=== PATIENT | female | born 2000 | race Caucasian/White ===

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

== ENCOUNTER 2020-09-02 04:01 | Inpatient (IN) | payer SELFPAY ==
[2020-09-02] MEDS ORDERED: Ondansetron 4 MG/2 ML SDV IVPUSH PRN (15:29)
[2020-09-02] MEDS ORDERED: Sodium Chloride 0.9% 10 ML Syringe FLUSH PRN (15:29)
[2020-09-02] MEDS ORDERED: Lidocaine 1% 50 ML MDV INJECT ONE (15:29)
[2020-09-02] MEDS ORDERED: Nalbuphine 10 MG/1 ML Vial IVPUSH PRN (15:29)
[2020-09-02] MEDS ORDERED: Oxytocin/Lactated Ringers 10 UNIT/1,000 ML BAG IV SCH ×2 (15:30)
[2020-09-02] MEDS: Lactated Ringers 1,000 ML IV SCH ×3 (15:59→18:43)
--- NOTE | 2020-09-02 16:07 | PCM.PREANE ---
Preanesthetic Assessment - Procedure Proposed Procedure: Labor epidural - Anesthesia/Transfusion/Family Hx Anesthesia History: No Prior Anesthesia Family History of Anesthesia Reaction: No Transfusion History: No Prior Transfusion(s) Intubation History: Unknown - Review of Systems General: No Symptoms Pulmonary: No Symptoms Cardiovascular: Edema (Bilateral ankles) Gastrointestinal: Abdominal Pain (Uterine contractions) Neurological: No Symptoms Other: Reports: Depression (No current anxiety or depression), Anxiety - Physical Assessment NPO Status Date: 09/02/20 NPO Status Time: 15:15 Vital Signs: BP 119/60 HR 94 16 98% 98.6 Height: 1.6 m Weight: 82.599 kg ASA Class: 2 Mental Status: Alert & Oriented x3 Airway Class: Mallampati = 2 Dentition: Reports: Normal Dentition, Caries Thyro-Mental Finger Breadths: 3 Mouth Opening Finger Breadths: 2 ROM/Head Extension: Full Lungs: Clear to Auscultation, Normal Respiratory Effort Cardiovascular: Regular Rate, Regular Rhythm, No Murmurs - Lab Values: Labs reviewed and okay to proceed - Allergies Allergies/Adverse Reactions: Allergies Allergy/AdvReac Type Severity Reaction Status Date / Time celery Allergy Numbness Verified 09/02/20 15:35 honey Allergy Swollen Verified 09/02/20 15:35 Tongue cats Allergy Sneezing Uncoded 09/02/20 15:35 - Blood Blood Available: No Product(s) Available: None - Anesthesia Plan Pre-Op Medication Ordered: None - Acknowledgements Anesthesia Type Planned: Epidural Pt an Appropriate Candidate for the Planned Anesthesia: Yes Alternatives and Risks of Anesthesia Discussed w Pt/Guardian: Yes Pt/Guardian Understands and Agrees with Anesthesia Plan: Yes PreAnesthesia Questionnaire HEENT History: Reports: Impaired Vision Other HEENT History: glasses Respiratory History: Reports: Asthma Other Respiratory History: uses inhaler PRN, has not used it in 2 years Gastrointestinal History: Reports: GERD 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 - SUBSTANCE USE Tobacco Use Status *Q: Current Every Day Tobacco User Tobacco Use Within Last Twelve Months: Vaping Second Hand Smoke Exposure: No Days Per Week of Alcohol Use: 0 Number of Drinks Per Day: 0 Total Drinks Per Week: 0 Recreational Drug Use History: No - HOME MEDS Home Medications: Home Meds Pnv No.95/Ferrous Fum/Folic AC [ Caplet] 1 tab PO DAILY 04/18/19 [History] Acetaminophen [Tylenol] 650 mg PO Q4H PRN tablet 09/24/19 [Rx] Benzocaine/Menthol [Dermoplast Pain Relief [place]] 50 gm TOP ASDIRECTED PRN c anister 09/24/19 [Rx] Docusate Sodium [Colace] 100 mg PO BID PRN cap 09/24/19 [Rx] Ibuprofen [Motrin] 600 mg PO Q4H PRN tablet 09/24/19 [Rx] wityeny Jerson [Tucks] 1 pad TOP ASDIRECTED PRN pad 09/24/19 [Rx] - CURRENT (IN HOUSE) MEDS Current Meds: Current Medications Oxytocin/Lactated Ringer's (Pitocin In Lr 10 Units/1,000 Ml) 10 unit in 1,000 mls @ 500 mls/hr IV .CONTINUOUS JOSELITO Oxytocin/Lactated Ringer's (Pitocin In Lr 10 Units/1,000 Ml) 10 unit in 1,000 mls @ 12 mls/hr IV TITRATE JOSELITO; Protocol Lactated Ringer's (Ringers, Lactated) 1,000 mls @ 100 mls/hr IV ASDIRECTED JOSELITO Last Admin: 09/02/20 15:59 Dose: 100 mls/hr Documented by: Nalbuphine HCl (Nalbuphine 10 Mg/1 Ml Vial) 10 mg IVPUSH Q2H PRN PRN Reason: Pain Ondansetron HCl (Ondansetron 4 Mg/2 Ml Sdv) 4 mg IVPUSH Q4H PRN PRN Reason: Nausea/Vomiting Sodium Chloride (Sodium Chloride 0.9% 10 Ml Syringe) 10 ml FLUSH ASDIRECTED PRN PRN Reason: Keep Vein Open Discontinued Medications Lidocaine HCl (Lidocaine 1% 50 Ml Mdv) 50 ml INJECT ONETIME ONE Stop: 09/02/20 15:30
[2020-09-02] MEDS ORDERED: Bupivacaine/fentaNYL/NS 100 ML Bag EPIDUR PRN (16:29)
[2020-09-02] MEDS ORDERED: ePHEDrine 50 MG/ML SDV IVPUSH PRN (16:29)
[2020-09-02] MEDS ORDERED: fentaNYL 100 MCG/2 ML SDV EPIDUR PRN (16:29)
[2020-09-02] MEDS ORDERED: diphenhydrAMINE 50 MG/ML SDV IVPUSH PRN (16:29)
--- NOTE | 2020-09-02 18:19 | PCM.LDHP ---
L&D History of Present Illness - General Date of Service: 09/02/20 Admit Problem/Dx: Patient Status Order with Admit Dx/Problem 09/02/20 15:29 Patient Status [ADT] Routine Admission Diagnosis/Problem Admission Diagnosis/Problem Normal labor - History of Present Illness Introduction:: 20 year old at 39w3. Here in labor and with SROM. PNC with Dr. Reese complicated by closely spaced pregnancies. Pain Score: 10 - Related Data Allergies/Adverse Reactions: Allergies Allergy/AdvReac Type Severity Reaction Status Date / Time celery Allergy Numbness Verified 09/02/20 15:35 honey Allergy Swollen Verified 09/02/20 15:35 Tongue cats Allergy Sneezing Uncoded 09/02/20 15:35 Home Medications: Home Meds Pnv No.95/Ferrous Fum/Folic AC [ Caplet] 1 tab PO DAILY 04/18/19 [History] Acetaminophen [Tylenol] 650 mg PO Q4H PRN tablet 09/24/19 [Rx] Benzocaine/Menthol [Dermoplast Pain Relief [place]] 50 gm TOP ASDIRECTED PRN canister 09/24/19 [Rx] Docusate Sodium [Colace] 100 mg PO BID PRN cap 09/24/19 [Rx] Ibuprofen [Motrin] 600 mg PO Q4H PRN tablet 09/24/19 [Rx] witch Jerson [Tucks] 1 pad TOP ASDIRECTED PRN pad 09/24/19 [Rx] Past Medical History HEENT History: Reports: Impaired Vision Other HEENT History: glasses Respiratory History: Reports: Asthma Other Respiratory History: uses inhaler PRN, has not used it in 2 years Gastrointestinal History: Reports: GERD 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 Social & Family History - Tobacco Use Tobacco Use Status *Q: Current Every Day Tobacco User Second Hand Smoke Exposure: No - Caffeine Use Caffeine Use: Reports: None - Alcohol Use Days Per Week of Alcohol Use: 0 Number of Drinks Per Day: 0 Total Drinks Per Week: 0 - Recreational Drug Use Recreational Drug Use: No H&P Review of Systems - Review of Systems: Review Of Systems: See Below General: Reports: No Symptoms HEENT: Reports: No Symptoms Pulmonary: Reports: No Symptoms Cardiovascular: Reports: No Symptoms Gastrointestinal: Reports: No Symptoms Genitourinary: Reports: No Symptoms Musculoskeletal: Reports: No Symptoms Skin: Reports: No Symptoms Psychiatric: Reports: No Symptoms Neurological: Reports: No Symptoms Hematologic/Lymphatic: Reports: No Symptoms Immunologic: Reports: No Symptoms L&D Exam - Exam Exam: See Below - Vital Signs Vital Signs: Last Vital Signs Temp 37.0 C 09/02/20 15:29 Pulse 94 09/02/20 15:29 Resp 16 09/02/20 15:29 BP 119/60 09/02/20 15:29 Pulse Ox 98 09/02/20 15:29 Weight: 82.599 kg - OB Specific Contraction Intensity: Moderate Movement: Active Heart Tones: Present Heart Rate (FHR) Variability: Moderate (6-25 bpm) Presentation: Vertex - Disla Score Disla Score Cervix Position: Midposition Disla Score Consistency: Soft Disla Score Effacement: 51-70% Disla Score Dilation: > 5 cm - Exam General: Alert, Oriented HEENT: PERRLA, Conjunctiva Clear, EACs Clear, EOMI, Hearing Intact, Mucosa Moist & [place], Nares Patent, Normal Nasal Septum, Posterior Pharynx Clear, TMs Clear Neck: Supple, Trachea Midline Lungs: Clear to Auscultation GI/Abdominal Exam: Normal Bowel Sounds, Soft, Non-Tender, No Organomegaly, No Distention, No Abnormal Bruit, No Mass, Pelvis Stable Back Exam: Normal Inspection, Full Range of Motion Extremities: Normal Inspection, Normal Range of Motion, Non-Tender, No Pedal Edema, Normal Capillary Refill Skin: Warm, Dry, Intact Neurological: Cranial Nerves Intact, Reflexes Equal Bilateral Psychiatric: Alert, Normal Affect, Normal Mood - Patient Data Lab Results Last 24 hrs: Laboratory Results - last 24 hr 09/02/20 09/02/20 Range/Units 15:44 15:47 WBC 10.56 H (3.98-10.04) K/mm3 RBC 3.94 L (3.98-5.22) M/mm3 Hgb 9.9 L D (11.2-15.7) gm/dl Hct 31.3 L (34.1-44.9) % MCV 79.4 D (79.4-94.8) fl MCH 25.1 L (25.6-32.2) pg MCHC 31.6 L (32.2-35.5) g/dl RDW Std Deviation 40.1 (36.4-46.3) fL Plt Count 245 (182-369) K/mm3 MPV 10.1 (9.4-12.3) fl Neut % (Auto) 73.3 H (34.0-71.1) % Lymph % (Auto) 19.4 (19.3-51.7) % [place] % (Auto) 6.7 (4.7-12.5) % Eos % (Auto) 0.3 L (0.7-5.8) Baso % (Auto) 0.1 (0.1-1.2) % Neut # (Auto) 7.74 H (1.56-6.13) K/mm3 Lymph # (Auto) 2.05 (1.18-3.74) K/mm3 [place] # (Auto) 0.71 H (0.24-0.36) K/mm3 Eos # (Auto) 0.03 L (0.04-0.36) K/mm3 Baso # (Auto) 0.01 (0.01-0.08) K/mm3 SARS-CoV-2 RNA (HARRY) Negative (NEGATIVE) Result Diagrams: 09/02/20 15:47 Problem List Initiated/Reviewed/Updated: Yes Orders Last 24hrs: Active Orders 24 hr Category Date Time Status Patient Status [ADT] Routine ADT 09/02/20 15:29 Active Activity as Tolerated [RC] PFP Care 09/02/20 15:29 Active Communication Order [RC] ASDIRECTED Care 09/02/20 15:29 Active Heart Tones [RC] ASDIRECTED Care 09/02/20 15:30 Active Non Stress Test [RC] PER UNIT ROUTINE Care 09/02/20 15:29 Active Notify Provider [RC] ASDIRECTED Care 09/02/20 16:29 Active Notify Provider [RC] PFP Care 09/02/20 15:29 Active Notify Provider [RC] PRN Care 09/02/20 15:29 Active Peripheral IV Care [RC] . DIRECTED Care 09/02/20 15:30 Active Vital Signs [RC] PER UNIT ROUTINE Care 09/02/20 15:29 Active Regular Diet [DIET] Diet 09/02/20 Dinner Active HEP C VIRUS AB [REF] Stat Lab 09/02/20 15:47 Received RAPID PLASMA REAGIN,RPR [CHEM] Routine Lab 09/02/20 15:47 Received Bupivacaine/fentaNYL/NS [fentaNYL/Bupivacaine/NS 2 MCG- Med 09/02/20 16:29 Active 0.125% 100 ML] 100 ml EPIDUR ASDIRECTED PRN Lactated Ringers [Ringers, Lactated] 1,000 ml Med 09/02/20 15:30 Active IV ASDIRECTED Nalbuphine [Nubain] Med 09/02/20 15:29 Active 10 mg IVPUSH Q2H PRN Ondansetron [Zofran] Med 09/02/20 15:29 Active 4 mg IVPUSH Q4H PRN Oxytocin/Lactated Ringers [Pitocin in LR 10 Units/1,000 Med 09/02/20 15:30 Active ML] 10 unit in 1,000 ml IV .CONTINUOUS Oxytocin/Lactated Ringers [Pitocin in LR 10 Units/1,000 Med 09/02/20 15:30 Active ML] 10 unit in 1,000 ml IV TITRATE Sodium Chloride 0.9% [Saline Flush] Med 09/02/20 15:29 Active 10 ml FLUSH ASDIRECTED PRN diphenhydrAMINE [Benadryl] Med 09/02/20 16:29 Active 25 mg IVPUSH Q6H PRN ePHEDrine [ePHEDrine sulfate] Med 09/02/20 16:29 Active 5 mg IVPUSH ASDIRECTED PRN fentaNYL [Sublimaze] Med 09/02/20 16:29 Active 100 mcg EPIDUR Q3H PRN Electronic Heart Tones Ext w TOCO [WOMSER] Oth 09/02/20 15:29 Ordered Routine Electronic Heart Tones Internal [WOMSER] Per Unit Oth 09/02/20 15:29 Ordered Routine Peripheral IV Insertion Adult [OM.PC] Routine Oth 09/02/20 15:29 Ordered Resuscitation Status Routine Resus Stat 09/02/20 15:29 Ordered Medication Orders Diphenhydramine HCl (Diphenhydramine 50 Mg/Ml Sdv) 25 mg IVPUSH Q6H PRN PRN Reason: pruritis Ephedrine Sulfate (Ephedrine 50 Mg/Ml Sdv) 5 mg IVPUSH ASDIRECTED PRN PRN Reason: Hypotension Fentanyl (Fentanyl 100 Mcg/2 Ml Sdv) 100 mcg EPIDUR Q3H PRN PRN Reason: Pain Last Admin: 09/02/20 17:42 Dose: 100 mcg Documented by: JESSICA Fentanyl/Bupivacaine HCl (Bupivacaine/Fentanyl/Ns 100 Ml Bag) 100 ml EPIDUR ASDIRECTED PRN PRN Reason: Pain Last Admin: 09/02/20 17:42 Dose: 100 ml Documented by: JESSICA Oxytocin/Lactated Ringer's (Pitocin In Lr 10 Units/1,000 Ml) 10 unit in 1,000 mls @ 500 mls/hr IV .CONTINUOUS JOSELITO Oxytocin/Lactated Ringer's (Pitocin In Lr 10 Units/1,000 Ml) 10 unit in 1,000 mls @ 12 mls/hr IV TITRATE JOSELITO; Protocol Lactated Ringer's (Ringers, Lactated) 1,000 mls @ 100 mls/hr IV ASDIRECTED JOSELITO Last Admin: 09/02/20 17:41 Dose: 100 mls/hr Documented by: Infusion: 09/02/20 17:41 Dose: 100 mls/hr Documented by: Admin: 09/02/20 15:59 Dose: 100 mls/hr Documented by: BLAKE Nalbuphine HCl (Nalbuphine 10 Mg/1 Ml Vial) 10 mg IVPUSH Q2H PRN PRN Reason: Pain Ondansetron HCl (Ondansetron 4 Mg/2 Ml Sdv) 4 mg IVPUSH Q4H PRN PRN Reason: Nausea/Vomiting Sodium Chloride (Sodium Chloride 0.9% 10 Ml Syringe) 10 ml FLUSH ASDIRECTED PRN PRN Reason: Keep Vein Open
[2020-09-02] MEDS ORDERED: Acetaminophen 325 MG Tab PO PRN (23:51)
[2020-09-03] MEDS ORDERED: Gentamicin 40 MG/ML 2 ML Vial IV SCH (01:45)
[2020-09-03] MEDS ORDERED: Clindamycin Phosphate in D5W 900 MG in Premix Bag 1 BAG IV SCH ×2 (02:00)
[2020-09-03] MEDS: Lactated Ringers 1,000 ML IV SCH (02:37)
--- NOTE | 2020-09-03 02:57 | PCM.PNLD ---
Labor Progress Note - VS & Meds Vital Signs: Last Vital Signs Temp 37.0 C 09/02/20 15:29 Pulse 94 09/02/20 15:29 Resp 16 09/02/20 15:29 BP 119/60 09/02/20 15:29 Pulse Ox 98 09/02/20 15:29 Active Medications: Current Medications Acetaminophen (Acetaminophen 325 Mg Tab) 650 mg PO Q4H PRN PRN Reason: Pain Last Admin: 09/03/20 00:05 Dose: 650 mg Documented by: Diphenhydramine HCl (Diphenhydramine 50 Mg/Ml Sdv) 25 mg IVPUSH Q6H PRN PRN Reason: pruritis Ephedrine Sulfate (Ephedrine 50 Mg/Ml Sdv) 5 mg IVPUSH ASDIRECTED PRN PRN Reason: Hypotension Fentanyl (Fentanyl 100 Mcg/2 Ml Sdv) 100 mcg EPIDUR Q3H PRN PRN Reason: Pain Last Admin: 09/02/20 17:42 Dose: 100 mcg Documented by: Fentanyl/Bupivacaine HCl (Bupivacaine/Fentanyl/Ns 100 Ml Bag) 100 ml EPIDUR ASDIRECTED PRN PRN Reason: Pain Last Admin: 09/02/20 17:42 Dose: 100 ml Documented by: Oxytocin/Lactated Ringer's (Pitocin In Lr 10 Units/1,000 Ml) 10 unit in 1,000 mls @ 500 mls/hr IV .CONTINUOUS JOSELITO Oxytocin/Lactated Ringer's (Pitocin In Lr 10 Units/1,000 Ml) 10 unit in 1,000 mls @ 12 mls/hr IV TITRATE JOSELITO; Protocol Lactated Ringer's (Ringers, Lactated) 1,000 mls @ 100 mls/hr IV ASDIRECTED JOSELITO Last Admin: 09/03/20 02:37 Dose: 100 mls/hr Documented by: Clindamycin Phosphate 900 mg/ (Premix) 50 mls @ 100 mls/hr IV Q6H JOSELITO Last Admin: 09/03/20 01:40 Dose: 100 mls/hr Documented by: Nalbuphine HCl (Nalbuphine 10 Mg/1 Ml Vial) 10 mg IVPUSH Q2H PRN PRN Reason: Pain Ondansetron HCl (Ondansetron 4 Mg/2 Ml Sdv) 4 mg IVPUSH Q4H PRN PRN Reason: Nausea/Vomiting Sodium Chloride (Sodium Chloride 0.9% 10 Ml Syringe) 10 ml FLUSH ASDIRECTED PRN PRN Reason: Keep Vein Open Discontinued Medications Gentamicin Sulfate (Gentamicin 40 Mg/Ml 2 Ml Vial) 0 mg IV .Pharmacy to Dose JOSELITO Gentamicin Sulfate 120 mg/ (Sodium Chloride) 103 mls @ 206 mls/hr IV ONETIME ONE Stop: 09/03/20 02:14 Last Admin: 09/03/20 02:04 Dose: 206 mls/hr Documented by: Lidocaine HCl (Lidocaine 1% 50 Ml Mdv) 50 ml INJECT ONETIME ONE Stop: 09/02/20 15:30 - Uterine Contractions Contraction Intensity: Moderate Uterine Resting Tone: Soft - Monitoring Heart Rate (FHR) Variability: Moderate (6-25 bpm) Decelerations: None Strip Review: Category I - Vaginal Exam Dilation (cm): 9.5 Effacement (Percent): 100 Station: -2 - Labor Progress (Free Text) Labor Progress: Called with report patient complete. On exam head high, ultrasound preformed to confirm head. Small thin anterior lip. Will start pushing once that resolves.
--- NOTE | 2020-09-03 03:10 | PCM.SN.2 ---
- Free Text/Narrative Note: Increasing tachycardia and now maternal fever over last 30 minutes of pushing. Antibiotics initiated. Discussed possibility of section however pushing very well now. Preparations made for but will push now and if no delivery imminent will proceed.
[2020-09-03] MEDS ORDERED: ceFAZolin 2 GM in Premix Bag 1 BAG IV ONE (03:22)
[2020-09-03] MEDS ORDERED: Metoclopramide 10 MG/2 ML SDV IVPUSH ONE (03:22)
[2020-09-03] MEDS ORDERED: Sodium Chloride 0.9% 10 ML Syringe FLUSH PRN (03:22)
[2020-09-03] MEDS ORDERED: Citric Acid/Sodium Citrate Solution 30 ML Cup PO ONE (03:22)
[2020-09-03] MEDS ORDERED: Sodium Bicarbonate 8.4% 50 MEQ/50 ML SDV ONE (03:25)
[2020-09-03] MEDS ORDERED: ceFAZolin 1 GM Vial ONE (03:25)
[2020-09-03] MEDS ORDERED: Lidocaine 2% with EPINEPHrine 1:200,000 20 ML SDV ONE (03:25)
[2020-09-03] MEDS ORDERED: Ketorolac 30 MG/ML SDV ONE (03:26)
[2020-09-03] MEDS ORDERED: fentaNYL 100 MCG/2 ML SDV ONE (03:26)
[2020-09-03] MEDS ORDERED: Oxytocin 10 Units/1 ML SDV ONE (03:26)
[2020-09-03] MEDS ORDERED: Ondansetron 4 MG/2 ML SDV ONE (03:26)
[2020-09-03] MEDS ORDERED: Azithromycin 500 MG in Sodium Chloride 0.9% 250 ML IV ONE (03:26)
[2020-09-03] MEDS ORDERED: Lactated Ringers 1,000 ML IV SCH (03:30)
[2020-09-03] MEDS ORDERED: Bupivacaine 0.5% 30 ML SDV ONE (03:33)
[2020-09-03] MEDS ORDERED: Morphine PF 10 MG/10 ML SDV ONE (04:23)
[2020-09-03] MEDS ORDERED: fentaNYL 100 MCG/2 ML SDV IVPUSH PRN (04:48)
[2020-09-03] MEDS ORDERED: diphenhydrAMINE 50 MG/ML SDV IVPUSH PRN (04:48)
[2020-09-03] MEDS ORDERED: Meperidine 50 MG/ML Vial IVPUSH PRN (04:48)
[2020-09-03] MEDS ORDERED: Ondansetron 4 MG/2 ML SDV IVPUSH PRN (04:48)
--- NOTE | 2020-09-03 04:49 | PCM.POSTAN ---
POST ANESTHESIA ASSESSMENT - MENTAL STATUS Mental Status: Alert, Oriented - VITAL SIGNS Vital Signs: Last Vital Signs Temp 98.6 F 09/02/20 15:29 Pulse 94 09/02/20 15:29 Resp 16 09/02/20 15:29 BP 119/60 09/02/20 15:29 Pulse Ox 98 09/02/20 15:29 PACU Vitals: 114/66 HR 77 RR 20 98.7 99 RA - RESPIRATORY Respiratory Status: Respiratory Rate WNL, Airway Patent, O2 Saturation Stable - CARDIOVASCULAR CV Status: Pulse Rate WNL, Blood Pressure Stable - GASTROINTESTINAL GI Status: No Symptoms - PAIN Pain Score: 0 - POST OP HYDRATION Hydration Status: Adequate & Stable
[2020-09-03] MEDS ORDERED: Lactated Ringers 1,000 ML ONE (05:01)
--- NOTE | 2020-09-03 05:37 | PCM.OPNOTE ---
- General Post-Op/Procedure Note Date of Surgery/Procedure: 09/03/20 Operative Procedure(s): Primary section Findings: Viable male weight 7 pounds 14 ounces Apgars 7/9 at 0401 Primary Surgeon: Shanelle Medina Anesthesia Provider: Nicolasa Poe Skin Fitter: Christal Poe Fluid Replacement, Intraop: 1,000 Output, Urine Amount: 50 EBL in mLs: 1,000 Complications: None Condition: Good Free Text/Narrative:: Intake & Output 09/02/20 09/02/20 09/03/20 14:59 22:59 06:59 Output Total 100 Balance -100 The patient was taken to the operating room where epidural anesthesia was dosed to surgical levels without difficulty. The patient was prepped and draped in the usual sterile fashion in the dorsal supine position with a leftward tilt. A Pfannenstiel skin incision was made with the scalpel and carried through to the underlying layer of fascia. The fascia was incised in the midline and extended laterally using Hooper scissors. Teodora clamps were used to elevate the superior aspect of the fascial incision, which was elevated, and the underlying rectus muscles were dissected off bluntly and using Hooper scissors. Attention was then turned to the inferior aspect of the fascial incision, which in similar fashion was grasped with Teodora clamps, elevated, and the underlying rectus muscles were dissected off bluntly and using the hooper. The rectus muscles were dissected in the midline. The peritoneum was entered bluntly; this incision was extended superiorly and inferiorly with good visualization of the bladder. The bladder blade was inserted. The vesicouterine peritoneum was identified and entered sharply using Metzenbaum scissors. This incision was extended laterally and the bladder flap was created digitally. The bladder blade was reinserted. The lower uterine segment was incised in a transverse fashion using the scalpel and with digital traction. Clear fluid was noted. The infant was subsequently delivered by flexing the head to the incision. Body and shoulders followed without difficulty. The cord was clamped and cut. The infant was subsequently handed to the awaiting waste machine operator whose presence had been requested.. The placenta was delivered spontaneously intact with a three-vessel cord noted. The uterus was exteriorized and cleared of all clots and debris. The uterine incision was repaired in 2 layers using 0 monocryl. Hemostasis was visualized. Hemostasis was visualized bilaterally. The uterus was returned to the abdomen. The uterine incision was reexamined and it was noted to be hemostatic. The pelvis was copiously irrigated. The fascia was closed with 1 PDS suture, and the skin was closed with 3-0 monocryl. Sponge, lap, and instrument counts were correct x2. The patient was stable at the completion of the procedure and was subsequently transferred to the recovery room in stable condition.
[2020-09-03] MEDS ORDERED: Acetaminophen 325 MG Tab PO PRN (06:26)
[2020-09-03] MEDS ORDERED: ePHEDrine 50 MG/ML SDV IVPUSH PRN (06:26)
[2020-09-03] MEDS ORDERED: Dextrose 5%-Lactated Ringers 1,000 ML IV SCH (06:26)
[2020-09-03] MEDS ORDERED: Clindamycin Phosphate in D5W 900 MG in Premix Bag 1 BAG IV ONE ×2 (06:26)
[2020-09-03] MEDS ORDERED: Naloxone 0.4 MG/ML SDV IVPUSH PRN (06:26)
[2020-09-03] MEDS ORDERED: Bupivacaine 0.25% 10 ML SDV ONE (07:00)
--- NOTE | 2020-09-03 10:00 | PCM48HPAN ---
Post Anesthesia Note - EVALUATION WITHIN 48HRS OF ANESTHETIC Vital Signs in Normal Range: Yes Patient Participated in Evaluation: Yes Respiratory Function Stable: Yes Airway Patent: Yes Cardiovascular Function Stable: Yes Hydration Status Stable: Yes Pain Control Satisfactory: Yes Nausea and Vomiting Control Satisfactory: Yes Mental Status Recovered: Yes Vital Signs: Last Vital Signs Temp 36.9 C 09/03/20 05:37 Pulse 83 09/03/20 08:47 Resp 16 09/03/20 05:27 BP 104/56 L 09/03/20 08:47 Pulse Ox 98 09/03/20 08:47
[2020-09-03] MEDS: diphenhydrAMINE 50 MG/ML SDV IVPUSH PRN (10:06)
[2020-09-03] MEDS: Ketorolac 30 MG/ML SDV IVPUSH SCH ×3 (10:09→22:17)
[2020-09-04] MEDS: diphenhydrAMINE 50 MG/ML SDV IVPUSH PRN (01:16)
[2020-09-04] MEDS: Ibuprofen 600 MG Tab PO PRN ×3 (06:30→18:40)
--- NOTE | 2020-09-04 08:09 | PCM.SN.2 ---
- Free Text/Narrative Note: note: Patient is doing well in the period. Minimal lochia, voiding well, ambulated without problems. Nursing without concerns. Patient is afebrile, vital signs are stable Abdomen is flat, soft, uterus is below the umbilicus and is firm and nontender. Incision appears to be healing well. Dressing is removed. Evidence of hematoma, seroma or infection. Legs are nontender. Hemoglobin is 7.9. White count is 17,000. Patient has no signs or symptoms of infection. Assessment: recovery going well. No signs or symptoms of infection. Patient ambulating well and tolerating her low blood count. Plan: Routine care. Patient be discharged home within the next 24-48 hours. Initiate iron 2 times a day in addition to her vitamins. Will monitor for signs of infection.
[2020-09-04] MEDS: Ferrous Sulfate 324 MG Tab.EC PO SCH ×2 (11:32→16:06)
[2020-09-04] MEDS: Docusate Sodium 100 MG Cap PO PRN ×2 (11:32→20:55)
[2020-09-04] MEDS: Acetaminophen/oxyCODONE 325-5 MG Tab PO PRN ×2 (16:07→20:55)
[2020-09-05] MEDS: Acetaminophen/oxyCODONE 325-5 MG Tab PO PRN ×2 (03:12→10:06)
--- NOTE | 2020-09-05 09:45 | PCM.DCSUM1 ---
Discharge Summary - Hospital Course Brief History: Admitted in labor. Pushed 3+ hours with minimal descent of head and eventual chorioamnionitis and tachycardia with decelerations. Proceeded with . Uncomplicated postop course. Diagnosis: Stroke: No - Discharge Data Discharge Date: 09/05/20 Discharge Disposition: Home, Self-Care 01 Condition: Good - Referral to Home Health Primary Care Physician: PCP None - Patient Summary/Data Operative Procedure(s) Performed: Primary section Hospital Course: Viable male weight 7 pounds 14 ounces Apgars 7/9 at 0401 - Patient Instructions Diet: Usual Diet as Tolerated Activity: No Strenuous Activities Driving: Do Not Drive Notify Provider of: Fever, Increased Pain, Swelling and Redness, Drainage, Nausea and/or Vomiting - Discharge Plan Home Medications: Home Meds Pnv No.95/Ferrous Fum/Folic AC [ Caplet] 1 tab PO DAILY 04/18/19 [History] Acetaminophen [Tylenol] 650 mg PO Q4H PRN tablet 09/24/19 [Rx] Benzocaine/Menthol [Dermoplast Pain Relief [place]] 50 gm TOP ASDIRECTED PRN canister 09/24/19 [Rx] Docusate Sodium [Colace] 100 mg PO BID PRN cap 09/24/19 [Rx] Ibuprofen [Motrin] 600 mg PO Q4H PRN tablet 09/24/19 [Rx] witch Jerson [Tucks] 1 pad TOP ASDIRECTED PRN pad 09/24/19 [Rx] Patient Handouts: Electronic Cigarette Information, Steps to Quit Smoking Referrals: Eryn Reese MD [Physician] - (2 weeks) - Discharge Summary/Plan Comment DC Time >30 min.: No - General Info Date of Service: 09/05/20 Functional Status: Reports: Pain Controlled - Review of Systems General: Reports: No Symptoms HEENT: Reports: No Symptoms Pulmonary: Reports: No Symptoms Cardiovascular: Reports: No Symptoms Gastrointestinal: Reports: No Symptoms Genitourinary: Reports: No Symptoms Musculoskeletal: Reports: No Symptoms Skin: Reports: No Symptoms Neurological: Reports: No Symptoms Psychiatric: Reports: No Symptoms - Patient Data Vitals - Most Recent: Last Vital Signs Temp 37.1 C 09/04/20 20:51 Pulse 85 09/04/20 20:51 Resp 16 09/04/20 20:51 BP 124/84 09/04/20 20:51 Pulse Ox 100 09/04/20 20:51 Weight - Most Recent: 82.599 kg Med Orders - Current: Current Medications Acetaminophen (Acetaminophen 325 Mg Tab) 650 mg PO Q4H PRN PRN Reason: mild pain or fever Diphenhydramine HCl (Diphenhydramine 50 Mg/Ml Sdv) 25 mg IVPUSH Q6H PRN PRN Reason: Itching or Nausea Last Admin: 09/04/20 01:16 Dose: 25 mg Documented by: Docusate Sodium (Docusate Sodium 100 Mg Cap) 100 mg PO Q12H PRN PRN Reason: Constipation Last Admin: 09/04/20 20:55 Dose: 100 mg Documented by: Ephedrine Sulfate (Ephedrine 50 Mg/Ml Sdv) 5 mg IVPUSH SEECOMMENT PRN PRN Reason: Other Ferrous Sulfate (Ferrous Sulfate 324 Mg Tab.Ec) 324 mg PO TIDMEALS JOSELITO Last Admin: 09/04/20 16:06 Dose: 324 mg Documented by: Ibuprofen (Ibuprofen 600 Mg Tab) 600 mg PO Q6H PRN PRN Reason: mild pain or fever Last Admin: 09/04/20 18:40 Dose: 600 mg Documented by: Naloxone HCl (Naloxone 0.4 Mg/Ml Sdv) 0.1 mg IVPUSH SEECOMMENT PRN PRN Reason: Respiratory Depression Oxycodone/Acetaminophen (Acetaminophen/Oxycodone 325-5 Mg Tab) 1 tab PO Q4H PRN PRN Reason: Pain (moderate 4-6) Last Admin: 09/04/20 20:55 Dose: 1 tab Documented by: Oxycodone/Acetaminophen (Acetaminophen/Oxycodone 325-5 Mg Tab) 2 tab PO Q4H PRN PRN Reason: Pain (severe 7-10) Last Admin: 09/05/20 03:12 Dose: 2 tab Documented by: Discontinued Medications Acetaminophen (Acetaminophen 325 Mg Tab) 650 mg PO Q4H PRN PRN Reason: Pain Last Admin: 09/03/20 00:05 Dose: 650 mg Documented by: Bupivacaine HCl (Bupivacaine 0.5% 30 Ml Sdv) Confirm Administered Dose 30 ml .ROUTE .STK-MED ONE Stop: 09/03/20 03:34 Last Admin: 09/03/20 03:59 Dose: 10 ml Documented by: Bupivacaine HCl (Bupivacaine 0.25% 10 Ml Sdv) 10 ml .ROUTE .STK-MED ONE Stop: 09/03/20 07:01 Cefazolin Sodium (Cefazolin 1 Gm Vial) Confirm Administered Dose 2 gm .ROUTE .STK-MED ONE Stop: 09/03/20 03:26 Citric Acid/Sodium Citrate (Citric Acid/Sodium Citrate Solution 30 Ml Cup) 30 ml PO ONETIME ONE Stop: 09/03/20 03:23 Last Admin: 09/03/20 03:25 Dose: 30 ml Documented by: Diphenhydramine HCl (Diphenhydramine 50 Mg/Ml Sdv) 25 mg IVPUSH Q6H PRN PRN Reason: pruritis Diphenhydramine HCl (Diphenhydramine 50 Mg/Ml Sdv) 25 mg IVPUSH Q6H PRN PRN Reason: Pruritis Ephedrine Sulfate (Ephedrine 50 Mg/Ml Sdv) 5 mg IVPUSH ASDIRECTED PRN PRN Reason: Hypotension Fentanyl (Fentanyl 100 Mcg/2 Ml Sdv) 100 mcg EPIDUR Q3H PRN PRN Reason: Pain Last Admin: 09/02/20 17:42 Dose: 100 mcg Documented by: Fentanyl (Fentanyl 100 Mcg/2 Ml Sdv) Confirm Administered Dose 100 mcg .ROUTE .[facility]-MED ONE Stop: 09/03/20 03:27 Fentanyl (Fentanyl 100 Mcg/2 Ml Sdv) 50 mcg IVPUSH Q5M PRN PRN Reason: Pain Fentanyl/Bupivacaine HCl (Bupivacaine/Fentanyl/Ns 100 Ml Bag) 100 ml EPIDUR ASDIRECTED PRN PRN Reason: Pain Last Admin: 09/02/20 17:42 Dose: 100 ml Documented by: Gentamicin Sulfate (Gentamicin 40 Mg/Ml 2 Ml Vial) 0 mg IV .Pharmacy to Dose JOSELITO Oxytocin/Lactated Ringer's (Pitocin In Lr 10 Units/1,000 Ml) 10 unit in 1,000 mls @ 500 mls/hr IV .CONTINUOUS JOSELITO Oxytocin/Lactated Ringer's (Pitocin In Lr 10 Units/1,000 Ml) 10 unit in 1,000 mls @ 12 mls/hr IV TITRATE JOSELITO; Protocol Lactated Ringer's (Ringers, Lactated) 1,000 mls @ 100 mls/hr IV ASDIRECTED JOSELITO Last Admin: 09/03/20 02:37 Dose: 100 mls/hr Documented by: Clindamycin Phosphate 900 mg/ (Premix) 50 mls @ 100 mls/hr IV Q6H [facility] Last Admin: 09/03/20 01:40 Dose: 100 mls/hr Documented by: Gentamicin Sulfate 120 mg/ (Sodium Chloride) 103 mls @ 206 mls/hr IV ONETIME ONE Stop: 09/03/20 02:14 Last Admin: 09/03/20 02:04 Dose: 206 mls/hr Documented by: Lactated Ringer's (Ringers, Lactated) 1,000 mls @ 125 mls/hr IV ASDIRECTED [facility] Cefazolin Sodium/Dextrose 2 gm (/ Premix) 50 mls @ 100 mls/hr IV ONETIME ONE Stop: 09/03/20 03:51 Last Admin: 09/03/20 21:24 Dose: Not Given Documented by: Azithromycin 500 mg/ Sodium (Chloride) 250 mls @ 250 mls/hr IV ONETIME ONE Stop: 09/03/20 04:25 Last Admin: 09/04/20 08:21 Dose: Not Given Documented by: Lactated Ringer's (Ringers, Lactated) Confirm Administered Dose 1,000 mls @ as directed .ROUTE .STK-MED ONE Stop: 09/03/20 05:02 Dextrose/Lactated Ringer's (Dextrose 5%-Lactated Ringers) 1,000 mls @ 125 mls/hr IV ASDIRECTED [facility] Stop: 09/03/20 14:25 Last Admin: 09/03/20 06:52 Dose: 125 mls/hr Documented by: Ketorolac Tromethamine (Ketorolac 30 Mg/Ml Sdv) Confirm Administered Dose 30 mg .ROUTE .STK-MED ONE Stop: 09/03/20 03:27 Ketorolac Tromethamine (Ketorolac 30 Mg/Ml Sdv) 30 mg IVPUSH Q6H [facility] Stop: 09/03/20 22:01 Last Admin: 09/03/20 22:17 Dose: 30 mg Documented by: Lidocaine HCl (Lidocaine 1% 50 Ml Mdv) 50 ml INJECT ONETIME ONE Stop: 09/02/20 15:30 Last Admin: 09/03/20 08:50 Dose: Not Given Documented by: Lidocaine/Epinephrine (Lidocaine 2% With Epinephrine 1:200,000 20 Ml Sdv) Confirm Administered Dose 20 ml .ROUTE .STK-MED ONE Stop: 09/03/20 03:26 Meperidine HCl (Meperidine 50 Mg/Ml Vial) 25 mg IVPUSH ONETIME PRN PRN Reason: Shivering Metoclopramide HCl (Metoclopramide 10 Mg/2 Ml Sdv) 10 mg IVPUSH ONETIME ONE Stop: 09/03/20 03:23 Last Admin: 09/03/20 03:25 Dose: 10 mg Documented by: Morphine Sulfate (Morphine Pf 10 Mg/10 Ml Sdv) Confirm Administered Dose 10 mg .ROUTE .STK-MED ONE Stop: 09/03/20 04:24 Nalbuphine HCl (Nalbuphine 10 Mg/1 Ml Vial) 10 mg IVPUSH Q2H PRN PRN Reason: Pain Ondansetron HCl (Ondansetron 4 Mg/2 Ml Sdv) 4 mg IVPUSH Q4H PRN PRN Reason: Nausea/Vomiting Ondansetron HCl (Ondansetron 4 Mg/2 Ml Sdv) Confirm Administered Dose 4 mg .ROUTE .STK-MED ONE Stop: 09/03/20 03:27 Ondansetron HCl (Ondansetron 4 Mg/2 Ml Sdv) 4 mg IVPUSH ONETIME PRN PRN Reason: Nausea/Vomiting Oxytocin (Oxytocin 10 Units/1 Ml Sdv) Confirm Administered Dose 10 unit .ROUTE .STK-MED ONE Stop: 09/03/20 03:27 Sodium Bicarbonate (Sodium Bicarbonate 8.4% 50 Meq/50 Ml Sdv) Confirm Administered Dose 50 meq .ROUTE .STK-MED ONE Stop: 09/03/20 03:26 Sodium Chloride (Sodium Chloride 0.9% 10 Ml Syringe) 10 ml FLUSH ASDIRECTED PRN PRN Reason: Keep Vein Open Sodium Chloride (Sodium Chloride 0.9% 10 Ml Syringe) 10 ml FLUSH ASDIRECTED PRN PRN Reason: Keep Vein Open - Exam General: Reports: Alert, Oriented HEENT: Reports: Pupils Equal, Pupils Reactive, EOMI, Mucous Membr. Moist/[place] Neck: Reports: Supple Lungs: Reports: Clear to Auscultation, Normal Respiratory Effort Cardiovascular: Reports: Regular Rate, Regular Rhythm GI/Abdominal Exam: Normal Bowel Sounds, Soft, Non-Tender, No Organomegaly, No Distention Rectal (Female) Exam: Normal Exam, Normal Rectal Tone Back Exam: Reports: Normal Inspection, Full Range of Motion Extremities: Normal Inspection, Normal Range of Motion, Non-Tender, No Pedal Edema, Normal Capillary Refill Skin: Reports: Warm, Dry, Intact Wound/Incisions: Reports: Healing Well Neurological: Reports: No New Focal Deficit Psy/Mental Status: Reports: Alert, Normal Affect, Normal Mood
[2020-09-05] MEDS: Ferrous Sulfate 324 MG Tab.EC PO SCH ×2 (11:40→11:43)
[2020-09-05 14:51] VITALS: BP 110/49; PULSE 81
== END 2020-09-05 13:25 | disposition home or self-care (01) | DRG 786 ==
LOC: JD.OB 04:01 → OBSVTOIN 09-03 04:01
PROVIDERS: ADMIT Obstetrics & Gynecology; ATTEND Obstetrics & Gynecology
PROC: 10D00Z1 Extraction of Products of Conception, Low, Open Approach (ICD-10-PCS; principal; 2020-09-03)
DX: O99.62 Diseases of the digestive system complicating childbirth (principal); O41.1230 Chorioamnionitis, third trimester, not applicable or unspecified; K21.9 Gastro-esophageal reflux disease without esophagitis; O99.334 Smoking (tobacco) complicating childbirth; F17.200 Nicotine dependence, unspecified, uncomplicated; Z20.822 Contact with and (suspected) exposure to COVID-19; O76 Abnormality in fetal heart rate and rhythm complicating labor and delivery; O99.52 Diseases of the respiratory system complicating childbirth; J45.909 Unspecified asthma, uncomplicated; Z37.0 Single live birth; Z3A.39 39 weeks gestation of pregnancy; Z88.8 Allergy status to other drugs, medicaments and biological substances; Z91.018 Allergy to other foods; Z91.09 Other allergy status, other than to drugs and biological substances; Z79.899 Other long term (current) drug therapy
CPT/HCPCS: 01967; 01968; 36415; 51702; 59025; 59409; 85025; 86592; 86803; A9270-GY; J0690; J1200; J1580; J1885; J2270; J2405; J2590; J2765; J3010; J3490; J7120; J7121; U0002